=== PATIENT | female | born 1940 | race African-American/Black ===

== ENCOUNTER 2022-12-16 16:45 | Inpatient (IN) | payer MEDICARE ==
[~2022-12-16] VITALS: Ht 167.6 cm; Wt 62.4 kg
[2022-12-16 19:52] LABS: HEMATOCRIT. 38.9 % (36.0-48.0); HEMOGLOBIN. 12.2 g/dL (12.0-16.0); MEAN CORPUSCULAR HEMOGLOBIN 28.9 pg (28.0-32.0); MEAN CORPUSCULAR VOLUME 91.8 fL (81.0-99.0); PLATELET 148 x1000/uL (130-400); RED BLOOD CELL COUNT 4.24 mill/uL (4.2-5.4); RED CELL DISTRIBUTION WIDTH 21.1 % (11.6-14.6)
[2022-12-16 20:02] LABS: INR 1.3; PARTIAL THROMBOPLASTIN TIME 30.8 sec (23.4-31.0); PROTHROMBIN TIME 13.4 sec (9.6-11.0)
[2022-12-16 20:03] LABS: CHLORIDE 100 mEq/L (98-107)
[2022-12-16 22:05] LABS: NUCLEATED RED BLOOD CELLS 6 /100 WBC; PLATELET ESTIMATE NORMAL
[2022-12-16] MEDS ORDERED: ACETAMINOPHEN 325MG TABLET PO ONE (22:30)
[2022-12-17 06:08] VITALS: BP 145/73
[2022-12-17 06:28] VITALS: BP 145/73
[2022-12-17 08:00] VITALS: BP 150/88
[2022-12-17] MEDS ORDERED: DEXTROSE 50% WATER 50ML SYRINGE IV PRN (09:30)
[2022-12-17] MEDS ORDERED: GUAIFENESIN 200MG/10ML SUGAR FREE UDC PO PRN (09:30)
[2022-12-17] MEDS ORDERED: MAGNESIUM/ALUMINUM HYDROXIDE/SIMETHICONE 30ML UDC PO PRN (09:30)
[2022-12-17] MEDS ORDERED: IPRATROPIUM/ALBUTEROL 0.5-3(2.5)MG/3ML NEB HHN PRN (09:30)
[2022-12-17] MEDS ORDERED: ACETAMINOPHEN 325MG TABLET PO PRN ×2 (09:30)
[2022-12-17] MEDS ORDERED: NALOXONE HCL 0.4MG/ML VIAL IV PRN (10:15)
[2022-12-17] MEDS ORDERED: ALBUTEROL (0.083%) 2.5MG/3ML NEB HHN PRN (10:15)
[2022-12-17] MEDS ORDERED: IPRATROPIUM BROMIDE (0.02%) 0.5MG/2.5ML NEB HHN PRN (10:15)
[2022-12-17 10:56] LABS: CHLORIDE 99 mEq/L (98-107)
[2022-12-17 10:57] LABS: HEMATOCRIT. 33.5 % (36.0-48.0); HEMOGLOBIN. 10.7 g/dL (12.0-16.0); MEAN CORPUSCULAR HEMOGLOBIN 28.8 pg (28.0-32.0); MEAN CORPUSCULAR VOLUME 90.1 fL (81.0-99.0); MEAN PLATELET VOLUME 7.3 fl (7.4-10.4); PLATELET 160 x1000/uL (130-400); RED BLOOD CELL COUNT 3.72 mill/uL (4.2-5.4); RED CELL DISTRIBUTION WIDTH 20.7 % (11.6-14.6)
[2022-12-17] MEDS: ENOXAPARIN 40MG/0.4ML SYR SUBCUT SCH (11:07)
[2022-12-17] MEDS: AMLODIPINE 5MG TABLET PO SCH (11:08)
[2022-12-17 11:09] LABS: CREATINE KINASE MB FRACTION 3.1 ng/mL (0.5-3.6)
[2022-12-17 11:10] LABS: HDL CHOLESTEROL 24 mg/dL (40-59); LDL CHOLESTEROL 83 mg/dL (5-100); PHOSPHORUS 4.1 mg/dL (2.5-4.9); T4 FREE 1.24 ng/dL (0.76-1.46)
[2022-12-17] MEDS: INSULIN LISPRO 100 UNITS/ML SUBCUT SCH ×3 (11:18→22:05)
[2022-12-17] MEDS: BLOOD SUGAR DIAGNOSTIC STRIP TEST SCH ×3 (11:18→22:05)
[2022-12-17 12:00] VITALS: BP 160/89
[2022-12-17 13:22] LABS: NUCLEATED RED BLOOD CELLS 7 /100 WBC; PLATELET ESTIMATE NORMAL
[2022-12-17 16:00] VITALS: BP 150/76
[2022-12-17] MEDS ORDERED: LEVOFLOXACIN 500MG TABLET PO NR (16:00)
[2022-12-17] MEDS ORDERED: LEVOFLOXACIN 500MG PREMIX 100 ML IV NR (16:30)
[2022-12-17] MEDS: ASPIRIN 81MG TABLET PO SCH (16:39)
[2022-12-17 17:42] LABS: CREATINE KINASE MB FRACTION 2.8 ng/mL (0.5-3.6)
[2022-12-17 17:44] LABS: T4 FREE 1.15 ng/dL (0.76-1.46)
[2022-12-17 18:15] LABS: VITAMIN B12 SERUM 662 pg/mL (211-911)
[2022-12-17 22:01] VITALS: BP 138/66
[2022-12-17] MEDS: FAMOTIDINE 20MG/2ML VIAL IV SCH (22:06)
[2022-12-17] MEDS: CARVEDILOL 3.125 MG TABLET PO SCH (22:06)
[2022-12-18] VITALS: BP 138/72
[2022-12-18 04:00] VITALS: BP 147/72
[2022-12-18] MEDS: DEXT 5%/0.9% NACL 1,000 ML IV SCH ×2 (04:45→14:05)
[2022-12-18] MEDS: BLOOD SUGAR DIAGNOSTIC STRIP TEST SCH ×4 (05:28→21:32)
[2022-12-18] MEDS: INSULIN LISPRO 100 UNITS/ML SUBCUT SCH ×4 (05:39→21:00)
[2022-12-18 07:25] LABS: CREATINE KINASE MB FRACTION 2.2 ng/mL (0.5-3.6)
[2022-12-18 08:00] VITALS: BP 148/81
[2022-12-18] MEDS: ASPIRIN 81MG TABLET PO SCH (09:01)
[2022-12-18] MEDS: ENOXAPARIN 40MG/0.4ML SYR SUBCUT SCH (09:01)
[2022-12-18] MEDS: AMLODIPINE 5MG TABLET PO SCH (09:01)
[2022-12-18] MEDS: CARVEDILOL 3.125 MG TABLET PO SCH ×2 (09:02→21:50)
[2022-12-18 09:20] LABS: CHLORIDE 101 mEq/L (98-107)
[2022-12-18 09:28] LABS: HEMATOCRIT. 30.1 % (36.0-48.0); HEMOGLOBIN. 9.7 g/dL (12.0-16.0); MEAN CORPUSCULAR HEMOGLOBIN 29.2 pg (28.0-32.0); MEAN CORPUSCULAR VOLUME 90.4 fL (81.0-99.0); MEAN PLATELET VOLUME 8.1 fl (7.4-10.4); PLATELET 148 x1000/uL (130-400); RED BLOOD CELL COUNT 3.33 mill/uL (4.2-5.4); RED CELL DISTRIBUTION WIDTH 20.8 % (11.6-14.6)
[2022-12-18 09:29] LABS: PHOSPHORUS 2.8 mg/dL (2.5-4.9)
[2022-12-18 12:00] VITALS: BP 126/71
[2022-12-18] MEDS: LEVOFLOXACIN 250MG PREMIX 50 ML IV SCH (15:55)
[2022-12-18 16:00] VITALS: BP 125/70
[2022-12-18] MEDS ORDERED: APIXABAN 5 MG TABLET PO SCH (17:00)
[2022-12-18 20:00] VITALS: BP 158/88
[2022-12-18 21:39] LABS: NUCLEATED RED BLOOD CELLS 2 /100 WBC; PLATELET ESTIMATE NORMAL
[2022-12-18] MEDS: FAMOTIDINE 20MG/2ML VIAL IV SCH (21:50)
[2022-12-19] VITALS: BP 144/47
[2022-12-19] MEDS: DEXT 5%/0.9% NACL 1,000 ML IV SCH ×3 (00:45→20:41)
[2022-12-19 04:00] VITALS: BP 156/83
[2022-12-19 06:24] LABS: HEMATOCRIT. 28.8 % (36.0-48.0); HEMOGLOBIN. 9.2 g/dL (12.0-16.0); MEAN CORPUSCULAR HEMOGLOBIN 29.2 pg (28.0-32.0); MEAN CORPUSCULAR VOLUME 90.8 fL (81.0-99.0); MEAN PLATELET VOLUME 7.6 fl (7.4-10.4); PLATELET 136 x1000/uL (130-400); RED BLOOD CELL COUNT 3.17 mill/uL (4.2-5.4); RED CELL DISTRIBUTION WIDTH 20.8 % (11.6-14.6)
[2022-12-19] MEDS: BLOOD SUGAR DIAGNOSTIC STRIP TEST SCH ×4 (06:41→20:47)
[2022-12-19] MEDS: INSULIN LISPRO 100 UNITS/ML SUBCUT SCH ×4 (06:41→20:47)
[2022-12-19 06:49] LABS: CHLORIDE 106 mEq/L (98-107)
[2022-12-19 06:58] LABS: PHOSPHORUS 3.3 mg/dL (2.5-4.9)
[2022-12-19 08:00] VITALS: BP 170/95
[2022-12-19] MEDS: AMLODIPINE 5MG TABLET PO SCH (08:43)
[2022-12-19] MEDS: ASPIRIN 81MG TABLET PO SCH (08:43)
[2022-12-19] MEDS: CARVEDILOL 3.125 MG TABLET PO SCH ×2 (08:43→20:48)
[2022-12-19] MEDS: APIXABAN 5 MG TABLET PO SCH ×2 (08:43→16:59)
[2022-12-19 09:07] LABS: VITAMIN D 25-OH 8.1 ng/mL (30.0-100.0)
[2022-12-19 10:07] LABS: VITAMIN D 1-25 DIHYDROXY 21.3 pg/mL (24.8-81.5)
[2022-12-19 12:00] VITALS: BP 126/73
[2022-12-19 13:00] LABS: NUCLEATED RED BLOOD CELLS 6 /100 WBC; PLATELET ESTIMATE NORMAL
[2022-12-19 14:30] LABS: CLARITY URINE CLEAR (CLEAR); COLOR URINE YELLOW (YELLOW); KETONES URINE NEGATIVE (NEGATIVE); LEUKOCYTE ESTERASE URINE NEGATIVE (NEGATIVE); NITRITE URINE NEGATIVE (NEGATIVE); OCCULT BLOOD URINE NEGATIVE (NEGATIVE); PH URINE 5.5 (4.5-8.0); PROTEIN URINE NEGATIVE (NEGATIVE); SPECIFIC GRAVITY URINE 1.045 (1.005-1.030)
[2022-12-19] MEDS: LEVOFLOXACIN 250MG PREMIX 50 ML IV SCH (15:51)
[2022-12-19 16:00] VITALS: BP 116/46
[2022-12-19 19:32] LABS: *AMPHETAMINES SCREEN URINE NEGATIVE (NEGATIVE); *BARBITURATES SCREEN URINE NEGATIVE (NEGATIVE); *BENZODIAZEPINES SCREEN URINE NEGATIVE (NEGATIVE); *COCAINE SCREEN URINE NEGATIVE (NEGATIVE); CANNABINOID URINE SCREEN NEGATIVE (NEGATIVE); METHADONE URINE SCREEN NEGATIVE (NEGATIVE); OPIATES URINE SCREEN PRESUMTIVE POSITIVE (NEGATIVE); PHENCYCLIDINE URINE SCREEN NEGATIVE (NEGATIVE)
[2022-12-19 20:00] VITALS: BP 131/70
[2022-12-19] MEDS: FAMOTIDINE 20MG TABLET PO SCH (20:48)
[2022-12-20] VITALS: BP 152/86
[2022-12-20] MEDS: DEXT 5%/0.9% NACL 1,000 ML IV SCH ×2 (03:32→16:09)
[2022-12-20 03:52] VITALS: BP 149/73
[2022-12-20] MEDS: INSULIN LISPRO 100 UNITS/ML SUBCUT SCH ×4 (06:02→20:24)
[2022-12-20] MEDS: BLOOD SUGAR DIAGNOSTIC STRIP TEST SCH ×4 (06:02→20:19)
[2022-12-20 08:00] VITALS: BP 154/76
[2022-12-20] MEDS: APIXABAN 5 MG TABLET PO SCH ×2 (09:01→16:10)
[2022-12-20] MEDS: ASPIRIN 81MG TABLET PO SCH (09:01)
[2022-12-20] MEDS: CARVEDILOL 3.125 MG TABLET PO SCH ×2 (09:02→20:51)
[2022-12-20] MEDS: AMLODIPINE 5MG TABLET PO SCH (09:02)
[2022-12-20 12:00] VITALS: BP 138/76
[2022-12-20] MEDS ORDERED: AMLO5TAB88 PO (14:54)
[2022-12-20] MEDS ORDERED: COR3 PO (14:54)
[2022-12-20] MEDS ORDERED: APIX5TAB PO (14:54)
[2022-12-20 16:00] VITALS: BP 153/75
[2022-12-20] MEDS: LEVOFLOXACIN 250MG PREMIX 50 ML IV SCH (16:08)
[2022-12-20 20:00] VITALS: BP 160/72
[2022-12-20] MEDS: FAMOTIDINE 20MG TABLET PO SCH (20:50)
[2022-12-21] VITALS: BP 167/90
[2022-12-21] MEDS: CLONIDINE 0.1MG TABLET PO PRN (01:43)
[2022-12-21 04:00] VITALS: BP 148/71
[2022-12-21] MEDS: BLOOD SUGAR DIAGNOSTIC STRIP TEST SCH ×4 (05:34→21:29)
[2022-12-21] MEDS: DEXT 5%/0.9% NACL 1,000 ML IV SCH ×2 (05:41→11:42)
[2022-12-21] MEDS: INSULIN LISPRO 100 UNITS/ML SUBCUT SCH ×4 (05:41→21:00)
[2022-12-21] MEDS: HYDROCODONE/ACETAMINOPHEN 5/325MG TABLET PO PRN ×2 (06:04→21:37)
[2022-12-21 08:00] VITALS: BP 118/61
[2022-12-21] MEDS: APIXABAN 5 MG TABLET PO SCH ×2 (08:09→17:05)
[2022-12-21] MEDS: AMLODIPINE 5MG TABLET PO SCH (08:10)
[2022-12-21] MEDS: CARVEDILOL 3.125 MG TABLET PO SCH ×2 (08:10→21:37)
[2022-12-21 10:09] LABS: BASOPHILS % 0.3 % (0.0-2.0); EOSINOPHILS % 1.2 % (0.0-5.0); HEMATOCRIT. 26.9 % (36.0-48.0); HEMOGLOBIN. 8.5 g/dL (12.0-16.0); MEAN CORPUSCULAR HEMOGLOBIN 28.7 pg (28.0-32.0); MEAN CORPUSCULAR VOLUME 90.6 fL (81.0-99.0); MONOCYTES % 9.9 % (2.0-8.0); NEUTROPHILS % 56.6 % (40.0-76.0); PLATELET 113 x1000/uL (130-400); RED BLOOD CELL COUNT 2.97 mill/uL (4.2-5.4); RED CELL DISTRIBUTION WIDTH 20.7 % (11.6-14.6)
[2022-12-21 11:33] LABS: CHLORIDE 104 mEq/L (98-107)
[2022-12-21] MEDS: LEVOFLOXACIN 250MG TABLET PO SCH (11:38)
[2022-12-21 11:41] LABS: PHOSPHORUS 3.3 mg/dL (2.5-4.9)
[2022-12-21 12:00] VITALS: BP 121/57
[2022-12-21 16:00] VITALS: BP 153/60
[2022-12-21] MEDS: DOCUSATE SODIUM 100MG CAPSULE PO PRN (17:05)
[2022-12-21 20:00] VITALS: BP 127/57
[2022-12-21] MEDS: FAMOTIDINE 20MG TABLET PO SCH (21:36)
[2022-12-22] VITALS: BP 142/70
[2022-12-22 04:00] VITALS: BP 132/66
[2022-12-22] MEDS: DEXT 5%/0.9% NACL 1,000 ML IV SCH ×2 (05:01→08:45)
[2022-12-22] MEDS: BLOOD SUGAR DIAGNOSTIC STRIP TEST SCH ×2 (05:07→11:40)
[2022-12-22] MEDS: INSULIN LISPRO 100 UNITS/ML SUBCUT SCH ×2 (05:08→12:10)
[2022-12-22] MEDS: DOCUSATE SODIUM 100MG CAPSULE PO PRN (05:42)
[2022-12-22 08:00] VITALS: BP 143/75
[2022-12-22] MEDS: APIXABAN 5 MG TABLET PO SCH (08:45)
[2022-12-22] MEDS: AMLODIPINE 5MG TABLET PO SCH (08:45)
[2022-12-22] MEDS: CARVEDILOL 3.125 MG TABLET PO SCH (08:45)
[2022-12-22 10:44] LABS: BASOPHILS % 0.3 % (0.0-2.0); HEMATOCRIT. 26.3 % (36.0-48.0); HEMOGLOBIN. 8.5 g/dL (12.0-16.0); MEAN CORPUSCULAR HEMOGLOBIN 29.4 pg (28.0-32.0); MEAN CORPUSCULAR VOLUME 91.4 fL (81.0-99.0); MEAN PLATELET VOLUME 7.6 fl (7.4-10.4); MONOCYTES % 10.3 % (2.0-8.0); NEUTROPHILS % 53.4 % (40.0-76.0); PLATELET 112 x1000/uL (130-400); RED BLOOD CELL COUNT 2.87 mill/uL (4.2-5.4); RED CELL DISTRIBUTION WIDTH 20.8 % (11.6-14.6)
[2022-12-22 11:27] LABS: CHLORIDE 108 mEq/L (98-107)
[2022-12-22 11:41] LABS: PHOSPHORUS 2.8 mg/dL (2.5-4.9)
[2022-12-22] MEDS: LEVOFLOXACIN 250MG TABLET PO SCH (12:45)
[2022-12-22 13:14] VITALS: BP 156/85
[2022-12-22] MEDS: CLONIDINE 0.1MG TABLET PO PRN (14:31)
[2022-12-26] MEDS ORDERED: APIXABAN 5 MG TABLET PO SCH (09:00)
== END 2022-12-22 16:51 | DRG 177 ==
LOC: ER 16:45 → 7EST 12-17 02:56
PROVIDERS: ADMIT Internal Medicine; ATTEND Internal Medicine
PROC: 02HV33Z Insertion of Infusion Device into Superior Vena Cava, Percutaneous Approach (ICD-10-PCS; principal; 2022-12-18)
PROC: B548ZZA Ultrasonography of Superior Vena Cava, Guidance (ICD-10-PCS; 2022-12-18)
DX: J69.0 Pneumonitis due to inhalation of food and vomit (principal); I26.99 Other pulmonary embolism without acute cor pulmonale; E44.1 Mild protein-calorie malnutrition; I48.92 Unspecified atrial flutter; E72.20 Disorder of urea cycle metabolism, unspecified; E16.2 Hypoglycemia, unspecified; D64.9 Anemia, unspecified; I25.10 Atherosclerotic heart disease of native coronary artery without angina pectoris; F03.90 Unspecified dementia, unspecified severity, without behavioral disturbance, psychotic disturbance, mood disturbance, and anxiety; C80.1 Malignant (primary) neoplasm, unspecified; K57.90 Diverticulosis of intestine, part unspecified, without perforation or abscess without bleeding; K80.20 Calculus of gallbladder without cholecystitis without obstruction; Z20.822 Contact with and (suspected) exposure to COVID-19; Z74.01 Bed confinement status; Z68.22 Body mass index [BMI] 22.0-22.9, adult; Z86.718 Personal history of other venous thrombosis and embolism; Z79.01 Long term (current) use of anticoagulants; W06.XXXA Fall from bed, initial encounter; Y92.003 Bedroom of unspecified non-institutional (private) residence as the place of occurrence of the external cause; Y93.89 Activity, other specified; Y99.8 Other external cause status
CPT/HCPCS: 36415; 36573; 70551; 71045; 71275; 73521; 73610; 74176; 76700; 80053; 80061; 80305; 81003; 82140; 82306; 82550; 82553; 82607; 82652; 82746; 82962; 83036; 83540; 83550; 83735; 83880; 84100; 84439; 84443; 84484; 85025; 85379; 86850; 86900; 87426; 93005; 93306; 93880; 93970; 97162; 97166; 97530; 99285; C1725; C1893; J1650; J1815; J1956; J3490; J7042

== ENCOUNTER 2023-06-11 12:44 | Inpatient (IN) | payer MEDICARE ==
[~2023-06-11] VITALS: Ht 160 cm; Wt 49.4 kg
[~2023-06-11 12:44] MED LIST: AMLO5TAB88 PO; APIX5TAB PO; COR3 PO
[2023-06-11] MEDS ORDERED: SODIUM CHLORIDE 0.9% 1000ML BAG (SEPSIS BOLUS) IV ONE (13:00)
[2023-06-11] MEDS ORDERED: PIPERACILLIN/TAZ 3.375G PREMIX 50 ML IV ONE (13:00)
[2023-06-11 14:20] LABS: INR 1.5; PROTHROMBIN TIME 15.6 sec (9.6-11.0)
[2023-06-11 14:43] LABS: HEMATOCRIT. 25.6 % (36.0-48.0); HEMOGLOBIN. 8.3 g/dL (12.0-16.0); MEAN CORPUSCULAR HEMOGLOBIN 30.6 pg (28.0-32.0); MEAN CORPUSCULAR HGB CONC 32.4 g/dL (31.0-37.0); MEAN CORPUSCULAR VOLUME 94.4 fL (81.0-99.0); MEAN PLATELET VOLUME 7.8 fl (7.4-10.4); PLATELET 155 x1000/uL (130-400); RED BLOOD CELL COUNT 2.71 mill/uL (4.2-5.4); RED CELL DISTRIBUTION WIDTH 21.6 % (11.6-14.6); WHITE BLOOD COUNT 3.7 x1000/uL (4.5-11.0)
[2023-06-11 14:46] LABS: DIFFERENTIAL COMMENT 1
[2023-06-11 15:09] LABS: ANISOCYTOSIS 3+; NUCLEATED RED BLOOD CELLS 8 /100 WBC; PLATELET ESTIMATE NORMAL
[2023-06-11 15:34] LABS: CHLORIDE 112 mEq/L (98-107); INDEX HEMOLYSI 2 (1-3); INDEX ICTERIC 1 (1-4); INDEX LIPEMIC 1 (1-3); POTASSIUM 3.7 mEq/L (3.5-5.1); SODIUM 141 mEq/L (136-145)
[2023-06-11 15:43] LABS: ALANINE AMINOTRANSFERASE 48 IU/L (13-61); ALBUMIN 2.6 g/dL (3.4-5.0); ASPARTATE AMINOTRANSFERASE 208 IU/L (15-37); BILIRUBIN TOTAL 0.6 mg/dL (0.1-1.0); CARBON DIOXIDE 23 mEq/L (21-32); CREATININE 0.9 mg/dL (0.6-1.3); GLUCOSE 102 mg/dL (70-105); NT PRO B-TYPE NATRIURETIC PEP 1412 pg/mL (5-125); PROTEIN TOTAL 7.4 g/dL (6.0-8.3); TROPONIN I HIGH SENSITIVITY 18 ng/L (<54); UREA NITROGEN BLOOD 31 mg/dL (7-21)
[2023-06-11 15:45] LABS: CLARITY URINE CLOUDY (CLEAR); COLOR URINE DARK YELLOW (YELLOW); GLUCOSE URINE NEGATIVE (NEGATIVE); KETONES URINE TRACE (NEGATIVE); LEUKOCYTE ESTERASE URINE 2+ (NEGATIVE); NITRITE URINE NEGATIVE (NEGATIVE); OCCULT BLOOD URINE NEGATIVE (NEGATIVE); PROTEIN URINE 1+ (NEGATIVE); SPECIFIC GRAVITY URINE 1.015 (1.005-1.030)
[2023-06-11 15:54] LABS: TROPONIN I HIGH SENSITIVITY 19 ng/L (<54)
[2023-06-11 16:15] LABS: BACTERIA URINE 3+; RBC URINE 0-2 /hpf (0-2); SQUAMOUS EPITHELIAL CELL URINE 1+ /lpf (RARE/1+)
[2023-06-11] MEDS ORDERED: ONDANSETRON HCL 4MG/2ML INJ IV PRN (17:00)
[2023-06-11] MEDS ORDERED: MAGNESIUM/ALUMINUM HYDROXIDE/SIMETHICONE 30ML UDC PO PRN (17:00)
[2023-06-11] MEDS ORDERED: IPRATROPIUM/ALBUTEROL 0.5-3(2.5)MG/3ML NEB HHN PRN (17:00)
[2023-06-11] MEDS ORDERED: ACETAMINOPHEN 650MG/20.3ML UDC GT PRN ×2 (17:00)
[2023-06-11] MEDS ORDERED: GUAIFENESIN 200MG/10ML SUGAR FREE UDC PO PRN (17:00)
[2023-06-11] MEDS ORDERED: HYDROCODONE/ACETAMINOPHEN 5/325MG TABLET PO PRN (17:00)
[2023-06-11] MEDS ORDERED: CLONIDINE 0.1MG TABLET PO PRN (17:00)
[2023-06-11] MEDS ORDERED: DOCUSATE SODIUM 100MG CAPSULE PO PRN (17:00)
[2023-06-11] MEDS ORDERED: NALOXONE HCL 0.4MG/ML VIAL IV PRN (17:30)
[2023-06-11 17:55] LABS: INDEX HEMOLYSI 1 (1-3); INDEX ICTERIC 1 (1-4); INDEX LIPEMIC 1 (1-3)
[2023-06-11 18:01] LABS: IRON 55 ug/dL (50-175); TOTAL IRON BINDING CAPACITY 171 ug/dL (250-450)
[2023-06-11] MEDS: SODIUM CHLORIDE 0.9% 1,000 ML IV SCH (18:01)
[2023-06-11] MEDS: ENOXAPARIN 60MG/0.6ML SYR SUBCUT SCH (18:02)
[2023-06-11 18:29] LABS: FOLIC ACID (FOLATE) SERUM 2.6 ng/mL (>5.38)
[2023-06-11] MEDS: MIRTAZAPINE 15MG TABLET PO SCH (21:20)
[2023-06-11] MEDS: CARVEDILOL 3.125 MG TABLET PO SCH (21:41)
[2023-06-11 22:11] LABS: INDEX HEMOLYSI 1 (1-3)
[2023-06-11 22:15] LABS: AMMONIA 32 uMol/L (<32)
[2023-06-11] MEDS ORDERED: FOLIC ACID 1 MG, THIAMINE HCL 500 MG, MVI, ADULT NO.1 10 ML in DEXTROSE 5% WATER 1,000 ML IV ONE ×4 (22:30)
[2023-06-12 01:59] VITALS: BP 140/56; PULSE 74; RESP 20; TEMP 98.8
[2023-06-12] MEDS: ENOXAPARIN 60MG/0.6ML SYR SUBCUT SCH (05:45)
[2023-06-12 07:26] LABS: HEMATOCRIT. 25.8 % (36.0-48.0); HEMOGLOBIN. 8.2 g/dL (12.0-16.0); MEAN CORPUSCULAR HEMOGLOBIN 30.3 pg (28.0-32.0); MEAN CORPUSCULAR VOLUME 94.7 fL (81.0-99.0); MEAN PLATELET VOLUME 7.6 fl (7.4-10.4); PLATELET 142 x1000/uL (130-400); RED BLOOD CELL COUNT 2.72 mill/uL (4.2-5.4); RED CELL DISTRIBUTION WIDTH 21.3 % (11.6-14.6); WHITE BLOOD COUNT 3.3 x1000/uL (4.5-11.0)
[2023-06-12 07:34] LABS: DIFFERENTIAL COMMENT 1
[2023-06-12 07:49] LABS: CHLORIDE 111 mEq/L (98-107); INDEX HEMOLYSI 1 (1-3); INDEX ICTERIC 1 (1-4); INDEX LIPEMIC 1 (1-3); POTASSIUM 3.4 mEq/L (3.5-5.1); SODIUM 142 mEq/L (136-145)
[2023-06-12 08:00] VITALS: BP 165/76; PULSE 84; RESP 18; TEMP 97.3
[2023-06-12 08:08] LABS: ALANINE AMINOTRANSFERASE 46 IU/L (13-61); ALBUMIN 2.5 g/dL (3.4-5.0); ASPARTATE AMINOTRANSFERASE 183 IU/L (15-37); BILIRUBIN TOTAL 0.6 mg/dL (0.1-1.0); CALCIUM 8.6 mg/dL (8.5-10.1); CARBON DIOXIDE 23 mEq/L (21-32); CHOLESTEROL 136 mg/dL (<200); CREATININE 0.9 mg/dL (0.6-1.3); GLUCOSE 61 mg/dL (70-105); HDL CHOLESTEROL 29 mg/dL (40-59); LDL CHOLESTEROL 97 mg/dL (5-100); T4 FREE 1.12 ng/dL (0.76-1.46); TRIGLYCERIDE 116 mg/dL (0-150); UREA NITROGEN BLOOD 30 mg/dL (7-21)
[2023-06-12] MEDS ORDERED: PNEUMOCOCCAL 23-VAL P-SAC VAC 0.5 ML IM ONE (10:00)
[2023-06-12] MEDS ORDERED: LIDOCAINE HCL 1% 10 MG/ML 10ML VIAL ONE ×2 (11:00→14:02)
[2023-06-12 12:00] VITALS: BP 128/67; PULSE 85; RESP 18; TEMP 97.7
[2023-06-12 12:40] LABS: SODIUM URINE RANDOM 32 mEq/L
[2023-06-12 13:01] LABS: OSMOLALITY URINE 481 mOsm/kg (500-850)
[2023-06-12 16:00] VITALS: BP 155/81; PULSE 87; RESP 18; TEMP 98
[2023-06-12 16:35] LABS: ANISOCYTOSIS 2+; PLATELET ESTIMATE NORMAL
[2023-06-12] MEDS ORDERED: POTASSIUM CHLORIDE 20MEQ TABLET SR PO NR (17:30)
[2023-06-12] MEDS ORDERED: CEFTRIAXONE 1GM PREMIX 50 ML IV SCH ×2 (17:30→18:30)
[2023-06-12] MEDS ORDERED: FOLIC ACID 1 MG, THIAMINE HCL 500 MG, MVI, ADULT NO.1 10 ML in DEXTROSE 5% WATER 1,000 ML IV ONE ×4 (18:00)
[2023-06-12] MEDS: CARVEDILOL 3.125 MG TABLET PO SCH ×2 (20:44→20:49)
[2023-06-12] MEDS: CEFTRIAXONE 1,000 MG in DEXTROSE 5% WATER 50 ML IV SCH (20:45)
[2023-06-12] MEDS: MIRTAZAPINE 15MG TABLET PO SCH (20:45)
[2023-06-13] VITALS: BP 87/43; PULSE 86; RESP 17; TEMP 97.1
[2023-06-13 04:00] VITALS: BP 143/73; PULSE 84; RESP 18; TEMP 97.4
[2023-06-13] MEDS: ENOXAPARIN 60MG/0.6ML SYR SUBCUT SCH ×2 (05:48→17:46)
[2023-06-13 08:00] VITALS: BP 140/72; PULSE 88; RESP 19; TEMP 98
[2023-06-13 08:12] LABS: HEMOGLOBIN. 8.1 g/dL (12.0-16.0); MEAN CORPUSCULAR HEMOGLOBIN 30.7 pg (28.0-32.0); MEAN CORPUSCULAR HGB CONC 32.2 g/dL (31.0-37.0); MEAN CORPUSCULAR VOLUME 95.2 fL (81.0-99.0); MEAN PLATELET VOLUME 8.4 fl (7.4-10.4); PLATELET 139 x1000/uL (130-400); RED BLOOD CELL COUNT 2.62 mill/uL (4.2-5.4); RED CELL DISTRIBUTION WIDTH 21.3 % (11.6-14.6)
[2023-06-13] MEDS: CARVEDILOL 3.125 MG TABLET PO SCH ×2 (08:37→20:55)
[2023-06-13] MEDS: FOLIC ACID 1MG TABLET PO SCH (08:38)
[2023-06-13] MEDS: PANTOPRAZOLE SODIUM 40 MG/VIAL IV SCH (08:38)
[2023-06-13] MEDS: AMLODIPINE 5MG TABLET PO SCH (08:38)
[2023-06-13] MEDS: SODIUM CHLORIDE 0.9% 1,000 ML IV SCH ×3 (08:44→15:44)
[2023-06-13 08:50] LABS: CHLORIDE 108 mEq/L (98-107); INDEX HEMOLYSI 1 (1-3); INDEX ICTERIC 1 (1-4); INDEX LIPEMIC 1 (1-3); POTASSIUM 3.1 mEq/L (3.5-5.1); SODIUM 139 mEq/L (136-145)
[2023-06-13 08:57] LABS: ALANINE AMINOTRANSFERASE 44 IU/L (13-61); ALBUMIN 2.5 g/dL (3.4-5.0); ASPARTATE AMINOTRANSFERASE 172 IU/L (15-37); BILIRUBIN TOTAL 0.6 mg/dL (0.1-1.0); CALCIUM 9.3 mg/dL (8.5-10.1); CARBON DIOXIDE 25 mEq/L (21-32); CREATININE 0.8 mg/dL (0.6-1.3); GLUCOSE 95 mg/dL (70-105); UREA NITROGEN BLOOD 27 mg/dL (7-21)
[2023-06-13 12:00] VITALS: BP 145/74; PULSE 81; RESP 18; TEMP 97.5
[2023-06-13 16:00] VITALS: BP 138/76; PULSE 86; RESP 19; TEMP 98.2
[2023-06-13 17:29] LABS: ANISOCYTOSIS 2+; NUCLEATED RED BLOOD CELLS 6 /100 WBC; PLATELET ESTIMATE NORMAL
[2023-06-13] MEDS: CEFTRIAXONE 1,000 MG in DEXTROSE 5% WATER 50 ML IV SCH (18:04)
[2023-06-13 20:00] VITALS: BP 114/72; PULSE 93; RESP 16; TEMP 98.3
[2023-06-13] MEDS: MIRTAZAPINE 15MG TABLET PO SCH (20:55)
[2023-06-14] VITALS: BP 144/84; PULSE 89; RESP 18; TEMP 97.5
[2023-06-14 04:00] VITALS: BP 104/67; PULSE 89; RESP 18; TEMP 96.8
[2023-06-14] MEDS: SODIUM CHLORIDE 0.9% 1,000 ML IV SCH ×2 (05:00→15:00)
[2023-06-14] MEDS: ENOXAPARIN 60MG/0.6ML SYR SUBCUT SCH ×2 (06:08→18:03)
[2023-06-14 08:00] VITALS: BP 112/80; PULSE 88; RESP 18; TEMP 96; TEMP 96.7
[2023-06-14 09:09] LABS: IMMUNOGLOBULIN A 357 mg/dL (64-422); IMMUNOGLOBULIN G 1917 mg/dL (586-1602); IMMUNOGLOBULIN M 58 mg/dL (26-217)
[2023-06-14] MEDS: CARVEDILOL 3.125 MG TABLET PO SCH ×2 (09:09→21:46)
[2023-06-14] MEDS: FOLIC ACID 1MG TABLET PO SCH (09:09)
[2023-06-14] MEDS: AMLODIPINE 5MG TABLET PO SCH (09:10)
[2023-06-14] MEDS: PANTOPRAZOLE SODIUM 40 MG/VIAL IV SCH (09:26)
[2023-06-14 12:00] VITALS: BP 139/70; PULSE 57; RESP 18; TEMP 97.5
[2023-06-14 13:23] LABS: CHLORIDE 112 mEq/L (98-107); INDEX HEMOLYSI 1 (1-3); INDEX ICTERIC 1 (1-4); INDEX LIPEMIC 1 (1-3); POTASSIUM 3.3 mEq/L (3.5-5.1); SODIUM 141 mEq/L (136-145)
[2023-06-14 13:34] LABS: ALANINE AMINOTRANSFERASE 41 IU/L (13-61); ALBUMIN 2.3 g/dL (3.4-5.0); ASPARTATE AMINOTRANSFERASE 146 IU/L (15-37); BILIRUBIN TOTAL 0.5 mg/dL (0.1-1.0); CALCIUM 8.9 mg/dL (8.5-10.1); CREATININE 0.7 mg/dL (0.6-1.3); GLUCOSE 76 mg/dL (70-105); PHOSPHORUS 3.3 mg/dL (2.5-4.9); PROTEIN TOTAL 6.3 g/dL (6.0-8.3); UREA NITROGEN BLOOD 21 mg/dL (7-21)
[2023-06-14 13:58] LABS: CARBON DIOXIDE 24 mEq/L (21-32)
[2023-06-14 14:51] LABS: BASOPHILS % 0.1 % (0.0-2.0); HEMATOCRIT. 23.6 % (36.0-48.0); HEMOGLOBIN. 7.4 g/dL (12.0-16.0); LYMPHOCYTES % 50.3 % (20.0-50.0); MEAN CORPUSCULAR HEMOGLOBIN 30.1 pg (28.0-32.0); MEAN CORPUSCULAR HGB CONC 31.5 g/dL (31.0-37.0); MEAN CORPUSCULAR VOLUME 95.5 fL (81.0-99.0); MEAN PLATELET VOLUME 8.4 fl (7.4-10.4); MONOCYTES % 11.1 % (2.0-8.0); NEUTROPHILS % 37.5 % (40.0-76.0); PLATELET 118 x1000/uL (130-400); RED BLOOD CELL COUNT 2.47 mill/uL (4.2-5.4); RED CELL DISTRIBUTION WIDTH 21.7 % (11.6-14.6)
[2023-06-14 14:54] LABS: DIFFERENTIAL COMMENT 1
[2023-06-14 16:00] VITALS: BP 112/80; PULSE 88; RESP 18; TEMP 96.7
[2023-06-14 20:00] VITALS: BP 161/78; PULSE 92; RESP 19; TEMP 96.6
[2023-06-14] MEDS: MIRTAZAPINE 15MG TABLET PO SCH (21:46)
[2023-06-14] MEDS: CEFTRIAXONE 1,000 MG in DEXTROSE 5% WATER 50 ML IV SCH (23:04)
[2023-06-15] VITALS: BP 135/67; PULSE 86; RESP 19; TEMP 97.5
[2023-06-15 04:00] VITALS: BP 131/83; PULSE 82; RESP 19; TEMP 96.1
[2023-06-15] MEDS: ENOXAPARIN 60MG/0.6ML SYR SUBCUT SCH ×2 (06:28→17:53)
[2023-06-15 08:00] VITALS: BP 168/88; PULSE 81; RESP 20; TEMP 96.4
[2023-06-15] MEDS: AMLODIPINE 5MG TABLET PO SCH (08:42)
[2023-06-15] MEDS: FOLIC ACID 1MG TABLET PO SCH (08:42)
[2023-06-15] MEDS: CARVEDILOL 3.125 MG TABLET PO SCH ×2 (08:42→20:39)
[2023-06-15] MEDS: PANTOPRAZOLE SODIUM 40 MG/VIAL IV SCH (09:51)
[2023-06-15 10:15] LABS: BASOPHILS % 0.7 % (0.0-2.0); HEMATOCRIT. 26.1 % (36.0-48.0); HEMOGLOBIN. 8.1 g/dL (12.0-16.0); LYMPHOCYTES % 39.7 % (20.0-50.0); MEAN CORPUSCULAR HEMOGLOBIN 29.9 pg (28.0-32.0); MEAN CORPUSCULAR VOLUME 96.2 fL (81.0-99.0); MEAN PLATELET VOLUME 7.8 fl (7.4-10.4); MONOCYTES % 9.7 % (2.0-8.0); NEUTROPHILS % 47.9 % (40.0-76.0); PLATELET 123 x1000/uL (130-400); RED BLOOD CELL COUNT 2.71 mill/uL (4.2-5.4); RED CELL DISTRIBUTION WIDTH 21.9 % (11.6-14.6); WHITE BLOOD COUNT 4.1 x1000/uL (4.5-11.0)
[2023-06-15 10:16] LABS: DIFFERENTIAL COMMENT 1
[2023-06-15 10:33] LABS: CHLORIDE 112 mEq/L (98-107); INDEX HEMOLYSI 1 (1-3); INDEX ICTERIC 1 (1-4); INDEX LIPEMIC 1 (1-3); SODIUM 141 mEq/L (136-145)
[2023-06-15 10:42] LABS: ALANINE AMINOTRANSFERASE 41 IU/L (13-61); ALBUMIN 2.3 g/dL (3.4-5.0); ASPARTATE AMINOTRANSFERASE 149 IU/L (15-37); BILIRUBIN TOTAL 0.6 mg/dL (0.1-1.0); CALCIUM 9.1 mg/dL (8.5-10.1); CARBON DIOXIDE 24 mEq/L (21-32); CREATININE 0.6 mg/dL (0.6-1.3); GLUCOSE 87 mg/dL (70-105); PROTEIN TOTAL 6.6 g/dL (6.0-8.3); UREA NITROGEN BLOOD 14 mg/dL (7-21)
[2023-06-15 12:00] VITALS: BP 141/72; PULSE 64; RESP 18; TEMP 97.4
[2023-06-15 16:00] VITALS: BP 145/82; PULSE 89; RESP 18; TEMP 97.4
[2023-06-15] MEDS: CEFTRIAXONE 1,000 MG in DEXTROSE 5% WATER 50 ML IV SCH (17:44)
[2023-06-15 20:00] VITALS: BP 141/78; PULSE 95; RESP 17; TEMP 97.1
[2023-06-15] MEDS: MIRTAZAPINE 15MG TABLET PO SCH (20:39)
[2023-06-15] MEDS ORDERED: POTASSIUM CHLORIDE 20MEQ TABLET SR PO NR (21:00)
[2023-06-16] VITALS: BP 147/79; PULSE 94; RESP 17; TEMP 97.8
[2023-06-16 04:00] VITALS: BP 151/80; PULSE 91; RESP 18; TEMP 97.9
[2023-06-16 06:16] LABS: BASOPHILS % 0.5 % (0.0-2.0); EOSINOPHILS % 1.7 % (0.0-5.0); HEMATOCRIT. 23.8 % (36.0-48.0); HEMOGLOBIN. 7.7 g/dL (12.0-16.0); LYMPHOCYTES % 41.9 % (20.0-50.0); MEAN CORPUSCULAR HEMOGLOBIN 30.3 pg (28.0-32.0); MEAN CORPUSCULAR HGB CONC 32.2 g/dL (31.0-37.0); MEAN CORPUSCULAR VOLUME 94.2 fL (81.0-99.0); MEAN PLATELET VOLUME 7.9 fl (7.4-10.4); MONOCYTES % 12.4 % (2.0-8.0); NEUTROPHILS % 43.5 % (40.0-76.0); PLATELET 121 x1000/uL (130-400); RED BLOOD CELL COUNT 2.53 mill/uL (4.2-5.4); RED CELL DISTRIBUTION WIDTH 21.2 % (11.6-14.6); WHITE BLOOD COUNT 4.6 x1000/uL (4.5-11.0)
[2023-06-16 07:02] LABS: INDEX HEMOLYSI 1 (1-3); INDEX ICTERIC 1 (1-4); INDEX LIPEMIC 1 (1-3)
[2023-06-16 07:21] LABS: ALANINE AMINOTRANSFERASE 39 IU/L (13-61); ALBUMIN 2.2 g/dL (3.4-5.0); ASPARTATE AMINOTRANSFERASE 139 IU/L (15-37); BILIRUBIN TOTAL 0.4 mg/dL (0.1-1.0); CARBON DIOXIDE 24 mEq/L (21-32); CHLORIDE 113 mEq/L (98-107); CREATININE 0.6 mg/dL (0.6-1.3); GLUCOSE 69 mg/dL (70-105); POTASSIUM 3.9 mEq/L (3.5-5.1); PROTEIN TOTAL 6.4 g/dL (6.0-8.3); SODIUM 145 mEq/L (136-145); UREA NITROGEN BLOOD 12 mg/dL (7-21)
[2023-06-16 08:00] VITALS: BP 137/80; PULSE 86; RESP 18; TEMP 96
[2023-06-16] MEDS: CARVEDILOL 3.125 MG TABLET PO SCH ×2 (10:30→21:33)
[2023-06-16] MEDS: FOLIC ACID 1MG TABLET PO SCH (10:30)
[2023-06-16] MEDS: AMLODIPINE 5MG TABLET PO SCH (10:30)
[2023-06-16] MEDS: PANTOPRAZOLE SODIUM 40 MG/VIAL IV SCH (13:52)
[2023-06-16 16:00] VITALS: BP 133/66; PULSE 89; RESP 20; TEMP 97
[2023-06-16] MEDS ORDERED: IPRATROPIUM/ALBUTEROL 0.5-3(2.5)MG/3ML NEB HHN PRN (18:00)
[2023-06-16] MEDS: CEFTRIAXONE 1,000 MG in DEXTROSE 5% WATER 50 ML IV SCH (18:27)
[2023-06-16 20:00] VITALS: BP 145/68; PULSE 100; RESP 16; TEMP 96.8
[2023-06-16] MEDS: MIRTAZAPINE 15MG TABLET PO SCH (21:33)
[2023-06-17] VITALS: BP 139/70; PULSE 89; RESP 16; TEMP 96.9
[2023-06-17 04:00] VITALS: BP 129/65; PULSE 93; RESP 16; TEMP 96.8
[2023-06-17 08:00] VITALS: BP 153/73; PULSE 85; RESP 20; TEMP 96
[2023-06-17] MEDS: PANTOPRAZOLE SODIUM 40 MG/VIAL IV SCH (08:23)
[2023-06-17] MEDS: AMLODIPINE 5MG TABLET PO SCH (08:23)
[2023-06-17] MEDS: FOLIC ACID 1MG TABLET PO SCH (08:24)
[2023-06-17] MEDS: CARVEDILOL 3.125 MG TABLET PO SCH (08:24)
[2023-06-17 13:24] VITALS: BP 130/64; PULSE 84; TEMP 97; O2SAT 97
== END 2023-06-17 14:46 | disposition home or self-care (01) | DRG 682 ==
LOC: ER 12:44 → EDBD 12:44 → 8WST 16:56 → EDBEDREQ 17:26 → EDBEDREQTM 17:26
PROVIDERS: ADMIT Internal Medicine; ATTEND Internal Medicine
PROC: 02HV33Z Insertion of Infusion Device into Superior Vena Cava, Percutaneous Approach (ICD-10-PCS; principal; 2023-06-12)
PROC: B548ZZA Ultrasonography of Superior Vena Cava, Guidance (ICD-10-PCS; 2023-06-12)
DX: N17.9 Acute kidney failure, unspecified (principal); E43 Unspecified severe protein-calorie malnutrition; G93.41 Metabolic encephalopathy; N39.0 Urinary tract infection, site not specified; Z68.1 Body mass index [BMI] 19.9 or less, adult; C79.9 Secondary malignant neoplasm of unspecified site; I11.0 Hypertensive heart disease with heart failure; E86.0 Dehydration; I48.91 Unspecified atrial fibrillation; D64.9 Anemia, unspecified; E87.6 Hypokalemia; F03.90 Unspecified dementia, unspecified severity, without behavioral disturbance, psychotic disturbance, mood disturbance, and anxiety; E53.8 Deficiency of other specified B group vitamins; E16.2 Hypoglycemia, unspecified; I50.9 Heart failure, unspecified; J44.9 Chronic obstructive pulmonary disease, unspecified; D72.819 Decreased white blood cell count, unspecified; K76.9 Liver disease, unspecified; Z74.01 Bed confinement status; Z79.01 Long term (current) use of anticoagulants; Z86.711 Personal history of pulmonary embolism; Z86.718 Personal history of other venous thrombosis and embolism; Z87.891 Personal history of nicotine dependence
CPT/HCPCS: 36415; 36573; 71045; 74176; 76700; 80053; 80061; 81003; 82140; 82378; 82607; 82728; 82746; 82784; 83036; 83540; 83550; 83605; 83735; 83880; 83935; 84100; 84145; 84300; 84439; 84443; 84484; 85025; 86334; 86850; 86900; 90732; 92610; 93005; 93970; 97162; 97167; 99285; C1725; C9113; J0696; J1650; J2543; J3411; J3490; J7030; J7060; J7070